=== PATIENT | male | born 1995 | race Caucasian/White ===

== ENCOUNTER 2017-05-22 19:26 | Emergency (ER) | payer BC ==
[2017-05-22] MEDS ORDERED: KETOROLAC 30 MG/1 ML SDV IVP ONE (19:55)
[2017-05-22] MEDS ORDERED: NS 1,000 ML IV ONE ×2 (19:55→22:12)
--- NOTE | 2017-05-22 19:59 | EDPHY ---
H & P Time Seen by Provider: 05/22/17 19:45 HPI/ROS: CHIEF COMPLAINT: Nausea, fatigue HISTORY OF PRESENT ILLNESS: Patient is a 21-year-old male with ankylosing spondylitis who presents to the emergency department with complaints of nausea and fatigue. The patient states he became ill last weekend. He initially had a slight head cold and cough. He describes a mild headache which subsequently resolved. He then became extremely fatigued and tired. He has had a fever and chills. He reports nausea and intermittent nonbloody emesis. No diarrhea. No abdominal pain. The patient still has intermittent nonproductive cough. No shortness of breath. No dysuria. The patient reports mild frequency. REVIEW OF SYSTEMS: My complete review of systems is negative except as mentioned in the HPI. Past Medical/Surgical History: Ankylosing spondylitis, arm fracture Social history: The patient does not smoke Smoking Status: Never smoked Physical Exam: 39.3, 123/80, 125, 16, 95 GENERAL: No acute distress, alert. HEENT: Eyes normal to inspection, normal pharynx, no signs of dehydration. NECK: No thyromegaly, no lymphadenopathy, supple. RESPIRATORY: Clear to auscultation bilaterally, no rales, rhonchi or wheezing. CVS: Regular rate and rhythm, no rubs, murmurs, or gallops. ABDOMEN: Soft, nontender, nondistended, no organomegaly. BACK: Normal to inspection, no CVA tenderness. SKIN: Normal color, no rash, warm, dry. No pallor. EXTREMITIES: No pedal edema, no calf tenderness, no Homans sign or cords, no joint swelling. NEURO/PSYCH: Alert and oriented, normal mood and affect, normal motor sensory exam. No obvious cranial nerve deficit. Constitutional: Initial Vital Signs Temperature (C) 39.3 C H 05/22/17 19:36 Heart Rate 125 H 05/22/17 19:36 Respiratory Rate 16 05/22/17 19:36 Blood Pressure 123/80 H 05/22/17 19:36 O2 Sat (%) 95 05/22/17 19:36 O2 Delivery Mode Room Air Allergies/Adverse Reactions: Sulfa (Sulfonamide Antibiotics) Allergy (Verified 05/22/17 19:36) Home Medications: Medication Instructions Recorded levOFLOXACIN [Levaquin] 750 mg PO DAILY #10 tab 05/22/17 Medical Decision Making - Diagnostics Imaging Results: Imaging Impressions Chest X-Ray 05/22/17 19:54 Impression: 1. Prominence of perihilar interstitial markings and peribronchial cuffing. Findings are nonspecific but can be seen with bronchitis, reactive airway disease, or viral process. 2. Hazy increased markings right suprahilar region that could represent pneumonitis or early pneumonia. ED Course/Re-evaluation: In the emergency department I discussed possible etiologies with the patient. I answered all his questions. An IV was placed. Patient was given 1 L of normal saline. He is given Toradol 30 mg IV for his temperature. Laboratory studies, chest x-ray and urine were obtained. I rechecked the patient. He is feeling better after receiving the fluid. CBC is pending. Chemistry panel and LFTs are normal. Influenza is pending. Urine pending. Chest x-ray: Please refer the dictated report. Prominence of perihilar interstitial markings and peribronchial cuffing. Findings are nonspecific but can be seen with bronchitis, reactive airway disease or viral process. 2. There he has the increased markings in the right for hilar region that could represent pneumonitis or early pneumonia. Based on the patient's presentation with temperature and significant fatigue he will be treated to cover for possible early pneumonia. The patient was given Levaquin 750 mg IV. Differential Diagnosis: My differential includes but is not limited to bacteremia, sepsis, bronchitis, pneumonia, influenza, urinary tract infection, viral illness - Data Points Laboratory Results: Laboratory Results 05/22/17 20:15 05/22/17 05/22/17 05/22/17 20:26 20:15 20:15 WBC RBC Hgb Hct MCV MCH MCHC RDW Plt Count MPV Neut % (Auto) Lymph % (Auto) [place] % (Auto) Eos % (Auto) Baso % (Auto) Nucleat RBC Rel Count Absolute Neuts (auto) Absolute Lymphs (auto) Absolute Monos (auto) Absolute Eos (auto) Absolute Basos (auto) Absolute Nucleated RBC Immature Gran % Immature Gran # PT 14.1 SEC SEC (12.0-15.0) INR 1.07 (0.83-1.16) APTT 30.2 SEC SEC (23.0-38.0) VBG Lactic Acid Sodium 141 mEq/L mEq/L (135-145) Potassium 4.4 mEq/L mEq/L (3.5-5.2) Chloride 102 mEq/L mEq/L (97-110) Carbon Dioxide 23 mEq/l mEq/l (22-31) Anion Gap 16 mEq/L mEq/L (8-16) BUN 21 mg/dL mg/dL (7-23) Creatinine 1.3 mg/dL mg/dL (0.7-1.3) Estimated GFR > 60 Glucose 98 mg/dL mg/dL (70-100) Calcium 9.3 mg/dL mg/dL (8.5-10.4) Total Bilirubin 1.2 mg/dL mg/dL (0.1-1.4) Conjugated Bilirubin 0.4 mg/dL mg/dL (0.0-0.5) Unconjugated Bilirubin 0.8 mg/dL mg/dL (0.0-1.1) AST 51 IU/L IU/L (17-59) ALT 32 IU/L IU/L (21-72) Alkaline Phosphatase 85 IU/L IU/L (38-126) Total Protein 7.9 g/dL g/dL (6.3-8.2) Albumin 4.6 g/dL g/dL (3.5-5.0) Nasal Influenza A PCR Pending Nasal Influenza B PCR Pending 05/22/17 05/22/17 20:15 20:15 WBC Pending RBC Pending Hgb Pending Hct Pending MCV Pending MCH Pending MCHC Pending RDW Pending Plt Count Pending MPV Pending Neut % (Auto) Pending Lymph % (Auto) Pending [place] % (Auto) Pending Eos % (Auto) Pending Baso % (Auto) Pending Nucleat RBC Rel Count Pending Absolute Neuts (auto) Pending Absolute Lymphs (auto) Pending Absolute Monos (auto) Pending Absolute Eos (auto) Pending Absolute Basos (auto) Pending Absolute Nucleated RBC Pending Immature Gran % Pending Immature Gran # Pending PT INR APTT VBG Lactic Acid 1.7 mmol/L mmol/L (0.7-2.1) Sodium Potassium Chloride Carbon Dioxide Anion Gap BUN Creatinine Estimated GFR Glucose Calcium Total Bilirubin Conjugated Bilirubin Unconjugated Bilirubin AST ALT Alkaline Phosphatase Total Protein Albumin Nasal Influenza A PCR Nasal Influenza B PCR Medications Given: Discontinued Medications Sodium Chloride (Ns) 1,000 mls @ 0 mls/hr IV EDNOW ONE; Wide Open PRN Reason: Protocol Stop: 05/22/17 19:56 Last Admin: 05/22/17 20:13 Dose: 1,000 mls Ketorolac Tromethamine (Toradol) 30 mg IVP EDNOW ONE Stop: 05/22/17 19:56 Last Admin: 05/22/17 20:14 Dose: 30 mg Departure - Departure Disposition: Home, Routine, Self-Care Clinical Impression: Fever Qualifiers: Fever type: unspecified Qualified Code(s): R50.9 - Fever, unspecified Pneumonia Qualifiers: Pneumonia type: due to unspecified organism Laterality: right Lung location: upper lobe of lung Qualified Code(s): J18.1 - Lobar pneumonia, unspecified organism Condition: Good Instructions: Pneumonia (ED), Fever in Adults (ED) Additional Instructions: Return to the emergency department with increasing shortness of breath, persistent fever, or any other concerns. Take your entire course of antibiotics. Referrals: Raffy Junior MD [[facility] [place] Primary Care Provider] - 2-3 days, call for appt.
[2017-05-22 20:47] LABS: INR 1.07 (0.83-1.16); PROTIME(PATIENT) 14.1 SEC (12.0-15.0)
[2017-05-22 21:02] LABS: PLATELET COUNT 123 10^3/uL (150-400)
[2017-05-22 23:25] VITALS: BP 110/65; PULSE 84; RESP 18; TEMP 98.1; O2SAT 94
== END 2017-05-22 23:23 | disposition home or self-care (01) ==
DX: J18.1 Lobar pneumonia, unspecified organism (principal); E86.9 Volume depletion, unspecified
CPT/HCPCS: 96365; J1885; J1956

== ENCOUNTER 2017-09-03 09:30 | Inpatient (IN) | payer BC ==
--- NOTE | 2017-09-03 09:32 | EDPHY ---
H & P Time Seen by Provider: 09/03/17 09:31 HPI/ROS: CHIEF COMPLAINT: Vomiting blood HISTORY OF PRESENT ILLNESS: 22-year-old man has a diagnosis of ankylosing spondylitis. He was diagnosed when his brother got diagnosed after having an eye problem. He has been sick over the last week with nausea and vomiting and abdominal cramping. Symptoms severe and yesterday and today associated with vomiting red blood including per office visit notes from Dr. Mary Lou barney 200 mL of blood during his appointment with her this morning. No melena or or red blood per rectum. Worse with oral intake. Associated also with 15 lb weight loss over the last week. REVIEW OF SYSTEMS: Eye: no change in vision ENT: no sore throat Cardiac: no chest pain or syncope, but feels lightheaded Pulmonary: no cough or SOB Abdomen: HPI Musculoskeletal: no back pain Skin: no rash Neuro: Feels dizzy and lightheaded, had a headache on Saturday but now it is gone. Constitutional: Subjective fever last week but none today. Took ibuprofen last and Saturday for the symptoms. Feels generally weak. : no urinary symptoms, no polyuria A comprehensive 10 point review of systems is otherwise negative aside from elements mentioned in the history of present illness. PAST MEDICAL HISTORY: Ankylosing spondylitis, diagnosed with influenza B on 05/12 in our emergency department. History of depression and anxiety Social history: Nonsmoker, no alcohol General Appearance: Alert and conversant, cooperative. Eyes: No scleral icterus. ENT, Mouth: Dry mucous membranes but no pharyngeal bleeding. Respiratory: Normal respiratory effort, breath sounds equal, lungs are clear to auscultation. Cardiovascular: Regular rate and rhythm. Tachycardic. Gastrointestinal: Abdomen is soft and non tender. Neurological: Alert, face symmetric, normal motor and sensory in extremities. Skin: Warm and dry, no rashes. Musculoskeletal: No peripheral edema. Psychiatric: Not agitated. Emergency Department course/MDM: Called by Dr. Manley at 9:15 a.m. Prior to the patient's arrival. I-STAT and EKG, IV hydration and Zofran 4 mg, admission to hospital for further evaluation. Protonix 40 mg IV for vomiting blood, consideration of upper GI bleed. 1003: I-STAT creatinine is 1.8, hematocrit 57. Labs reviewed include acute kidney injury and hemoconcentration from dehydration. Smoking Status: Never smoked Constitutional: Initial Vital Signs Temperature (C) 36.7 C 09/03/17 09:35 Heart Rate 119 H 09/03/17 09:35 Respiratory Rate 18 09/03/17 09:35 Blood Pressure 97/79 L 09/03/17 09:35 O2 Sat (%) 95 09/03/17 09:35 O2 Delivery Mode Room Air Allergies/Adverse Reactions: Penicillins Allergy (Verified 09/03/17 10:35) rash/fever Sulfa (Sulfonamide Antibiotics) Allergy (Verified 09/03/17 10:35) rash/fever Home Medications: Medication Instructions Recorded Ibuprofen [Motrin (*)] 200 mg PO DAILY PRN 09/03/17 Medical Decision Making - Diagnostics EKG Interpretation: 12-lead EKG interpreted by me; official reading is in trace master. My interpretation is sinus rhythm rate 86 no ischemic changes. Differential Diagnosis: Differential diagnosis considered for nausea and vomiting including but not limited to gastroenteritis, gastritis, appendicitis, and medication side effect. Consult/Admit Bed Type: [place] [id number] - Data Points Laboratory Results: Laboratory Results 09/03/17 09:46 09/03/17 09:46 09/03/17 09/03/17 09/03/17 09:51 09:46 09:46 WBC 9.65 10^3/uL H 10^3/uL (3.80-9.50) RBC 6.13 10^6/uL 10^6/uL (4.40-6.38) Hgb 18.9 g/dL H g/dL (13.7-17.5) POC Hgb 19.4 gm/dL H gm/dL (13.7-17.5) Hct 52.5 % H % (40.0-51.0) POC Hct 57 % H % (40-51) MCV 85.6 fL fL (81.5-99.8) MCH 30.8 pg pg (27.9-34.1) MCHC 36.0 g/dL g/dL (32.4-36.7) RDW 12.3 % % (11.5-15.2) Plt Count 269 10^3/uL 10^3/uL (150-400) MPV 10.3 fL fL (8.7-11.7) Neut % (Auto) 69.6 % % (39.3-74.2) Lymph % (Auto) 21.6 % % (15.0-45.0) [place] % (Auto) 7.7 % % (4.5-13.0) Eos % (Auto) 0.4 % L % (0.6-7.6) Baso % (Auto) 0.3 % % (0.3-1.7) Nucleat RBC Rel Count 0.0 % % (0.0-0.2) Absolute Neuts (auto) 6.72 10^3/uL H 10^3/uL (1.70-6.50) Absolute Lymphs (auto) 2.08 10^3/uL 10^3/uL (1.00-3.00) Absolute Monos (auto) 0.74 10^3/uL 10^3/uL (0.30-0.80) Absolute Eos (auto) 0.04 10^3/uL 10^3/uL (0.03-0.40) Absolute Basos (auto) 0.03 10^3/uL 10^3/uL (0.02-0.10) Absolute Nucleated RBC 0.00 10^3/uL 10^3/uL (0-0.01) Immature Gran % 0.4 % % (0.0-1.1) Immature Gran # 0.04 10^3/uL 10^3/uL (0.00-0.10) POC Sodium 139 mEq/L mEq/L (135-145) Sodium 142 mEq/L mEq/L (135-145) POC Potassium 4.0 mEq/L mEq/L (3.3-5.0) Potassium 4.6 mEq/L mEq/L (3.3-5.0) POC Chloride 97 mEq/L mEq/L (97-110) Chloride 96 mEq/L L mEq/L (97-110) Carbon Dioxide 28 mEq/l mEq/l (22-31) Anion Gap 18 mEq/L H mEq/L (8-16) POC BUN 62 mg/dL H mg/dL (7-23) BUN 65 mg/dL H mg/dL (7-23) Creatinine 1.6 mg/dL H mg/dL (0.7-1.3) POC Creatinine 1.8 mg/dL H mg/dL (0.7-1.3) Estimated GFR 55 Glucose 164 mg/dL H mg/dL (70-100) POC Glucose 171 mg/dL H mg/dL (70-100) Calcium 9.7 mg/dL mg/dL (8.5-10.4) Total Bilirubin 2.0 mg/dL H mg/dL (0.1-1.4) Conjugated Bilirubin 0.5 mg/dL mg/dL (0.0-0.5) Unconjugated Bilirubin 1.5 mg/dL H mg/dL (0.0-1.1) AST 39 IU/L IU/L (17-59) ALT 24 IU/L IU/L (21-72) Alkaline Phosphatase 89 IU/L IU/L (38-126) Total Protein 8.6 g/dL H g/dL (6.3-8.2) Albumin 4.8 g/dL g/dL (3.5-5.0) Medications Given: Discontinued Medications Sodium Chloride (Ns) 1,000 mls @ 3,000 mls/hr IV ONCE ONE Stop: 09/03/17 10:09 Last Admin: 09/03/17 09:53 Dose: 1,000 mls Sodium Chloride (Ns) 1,000 mls @ 0 mls/hr IV EDNOW ONE; Wide Open PRN Reason: Protocol Stop: 09/03/17 10:04 Last Admin: 09/03/17 10:36 Dose: 1,000 mls Sodium Chloride (Ns) 1,000 mls @ 0 mls/hr IV EDNOW ONE; Wide Open PRN Reason: Protocol Stop: 09/03/17 10:04 Last Admin: 09/03/17 11:11 Dose: Not Given Ondansetron HCl (Zofran) 4 mg IVP EDNOW ONE Stop: 09/03/17 09:51 Last Admin: 09/03/17 09:51 Dose: 4 mg Pantoprazole Sodium (Protonix) 40 mg IVP EDNOW ONE Stop: 09/03/17 09:47 Last Admin: 09/03/17 09:52 Dose: 40 mg Point of Care Test Results: Chemistry 09/03/17 09:51 POC Sodium 139 mEq/L mEq/L (135-145) POC Potassium 4.0 mEq/L mEq/L (3.3-5.0) POC Chloride 97 mEq/L mEq/L (97-110) POC BUN 62 mg/dL H mg/dL (7-23) POC Creatinine 1.8 mg/dL H mg/dL (0.7-1.3) POC Glucose 171 mg/dL H mg/dL (70-100) ISTAT H&H 09/03/17 09:51 POC Hgb 19.4 gm/dL H gm/dL (13.7-17.5) POC Hct 57 % H % (40-51) Departure - [facility] Clinical Impression: Dehydration, Upper GI bleed Nausea & vomiting Qualifiers: Vomiting type: unspecified Vomiting Intractability: intractable Qualified Code( s): R11.2 - Nausea with vomiting, unspecified Condition: Good
[2017-09-03] MEDS ORDERED: PANTOPRAZOLE SODIUM 40 MG VIAL IVP ONE (09:46)
[2017-09-03] MEDS ORDERED: ONDANSETRON 4 MG/2 ML VIAL ONE (09:46)
[2017-09-03] MEDS ORDERED: NS 1,000 ML IV ONE ×3 (09:50→10:03)
[2017-09-03] MEDS ORDERED: ONDANSETRON 4 MG/2 ML VIAL IVP ONE (09:50)
--- NOTE | 2017-09-03 10:00 | CPEKG ---
Heart Rate: 86 RR Interval: 698 P-R Interval: 160 QRSD Interval: 84 QT Interval: 380 QTC Interval: 455 P Tiline: 72 QRS Tiline: 87 T Wave Tiline: 50 EKG Severity - NORMAL ECG - EKG Impression: SINUS RHYTHM Electronically Signed By: Ashish Rogers 03-Sep-2017 10:02:36
[2017-09-03 10:01] LABS: PLATELET COUNT 269 10^3/uL (150-400)
--- NOTE | 2017-09-03 10:57 | PDGENHP ---
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 He was doing well until approximately 6 days ago when he started to have onset of nausea vomiting with occasional crampy abdominal discomfort but no change in bowel function. He did have some modest fevers for the 1st couple of days but these have since resolved. There has been no rash, no pain in joints or swelling in joints, no oral ulcers or ocular symptoms. He has no respiratory symptoms. There was a little bit of blood in emesis 4 days ago but then yesterday and today more notable amount of blood. He has been able to keep almost no food or fluids in over the last few days. He is starting to feel weak and tired. He presents to the hospital with these complaints. There is no prior history of gastrointestinal illness, but he did admit to using some ibuprofen early on during this illness. Normally he does not use any nonsteroidal anti-inflammatories. He does not drink alcohol or use street drugs. He has no prior history of abnormal bleeding tendencies. There is no family history of digestive illnesses or bleeding illnesses that he is aware of. He has not traveled outside the country, does not have any acquaintances who are ill, has not had any outdoor shi to drink, has not eaten any suspicious foods. 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 No alcohol, no street drugs MEDICATIONS: The patients list has been reconciled by our clinical pharmacist in the EMR. I have reviewed the list and ordered appropriate medicines. PHYSICAL EXAMINATION: Vital Signs: Initially he was quite tachycardic and somewhat hypotensive in the ER but this responded very quickly to IV fluids; no fevers Hall Worker: Sinus tachycardia initially Examination: General: alert, oriented, good mentation, relaxed though looks very tired Skin: warm, dry, good color, no rash HEENT: normal Neck: no mass or jvd Resps: relaxed Lungs: clear breath sounds Heart: regular, no murmur Abdomen: soft, nondistended, nontender, +BS, no mass Upper Extremities: normal Lower Extremities: no edema, warm No Bleeding or bruising Neurologic: normal speech/language, normal automatic screwmaker, no focal weakness IV site: looks normal LABORATORY DATA: Initial hemoglobin is at 19, and noticeably his hemoglobin was at 19 three months ago when he had a likely bronchitis visit to the ER. Platelets are normal, white blood cell count slightly high. On metabolic panel notably he has a new increase in his creatinine to 1.8 when it was normal 3 months ago. After hydration I have recheck laboratory data and his hemoglobin is now down to 14 and creatinine is improved to 1.2. RADIOLOGY STUDIES: None so far 12 LEAD EKG, my reading of the ER tracing: Sinus rhythm with no acute abnormalities ASSESSMENT: * acute upper GI bleed, complicated by hypotension tachycardia * Differential diagnosis for cause includes nonsteroidal induced ulceration, Val-Tovar tear which seems more likely * acute hypotension with tachycardia, likely represents response to dehydration as much as anything but will need to watch closely as he is having GI bleeding * gastroenteritis versus other cause of ongoing nausea vomiting x1 week * acute renal failure due to above * ankylosing spondylitis PLANS: * obs admission hospital * Aggressive hydration with IV fluids * Follow hemoglobin and renal function very closely * Proton pump inhibitor started in the ER and will continue that twice daily * I have asked Dr. Krunal Lynn to assess the patient and follow along; upper endoscopy has been recommends the patient but after reviewing with his mother the patient and his mother have decided to request that we not do endoscopy unless he has ongoing bleeding, which we will respect the as long as he is clinically stable * GI viral PCR studies to try and identify an etiology I have reviewed the patient's case in detail with Dr. Krunal Lynn I have reviewed the patient's past medical records as part of this assessment, including previous emergency room visit records and clinic records previous ER visit records with laboratory data and physician notes
--- NOTE | 2017-09-03 13:35 | GCON ---
[f rep st] CONSULTATION DATE OF CONSULTATION: 09/03/2017 REFERRING PHYSICIAN: Dr. Polanco Dear Dr. Polanco: Thank you very kindly for asking me to evaluate the patient in consultation today for a chief complai nt of hematemesis. 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 He describes a fever that was low-grade and a headache, foll owed by several episodes of watery diarrhea and abdominal pain. Today, he woke up and was nauseous a nd could not eat or drink and developed vomiting. He had multiple episodes of vomiting until all he was doing was dry heaving and then ultimately had an episode of bright red hematemesis. He threw up again in the emergency room, which was more maroon color and about a coffee cup full. He denies any further vomiting. He has had no melena. His hematocrit in the ER with likely, we believe, hemoconce ntration, however, was 52.5. His BUN is also elevated at 65, with a creatinine of 1.6, which may be a combination of dehydration and bleeding. He has had no previous gastrointestinal bleeding and has had no specific gastrointestinal illness in his history. He does have ankylosing spondylitis, which is manifested mostly by low back pain, and is not on any routine medications for this. He did take 1 dose of ibuprofen on and again on Saturday for the headache, but none since. Currently, he h as had no further fever, and his headache is improved. He feels much better after IV hydration in emergency room. I am asked to assist with further evaluation and management. PAST MEDICAL HISTORY: Ankylosing spondylitis. He had a flu-like illness in May that was treated a [facility]. PAST SURGICAL HISTORY: Repair of a right arm fracture. MEDICATIONS: On admission, ibuprofen. ALLERGIES: Penicillin and sulfa. FAMILY HISTORY: Negative for esophageal illness, peptic ulcer disease, pancreatic illness, or inflam matory bowel disease. REVIEW OF SYSTEMS: CONSTITUTIONAL: Has been having fever, headache, general malaise, poor appetite and nausea. HEENT: Frontal headache without worsening. This seems to be improved after hydration. He does report a sore throat. No epistaxis. PULMONARY: No cough or shortness of breath. CARDIOVA SCULAR: He does have some mild lower chest discomfort since the vomiting but no exertional chest pasquale n. No palpitations. No syncope. No exertional dyspnea. NEURO: No paresthesias or focal motor wea kness. RHEUMATOLOGIC: He describes chronic low back pain that has not been worse. No other joint p ain. HEMATOLOGIC: No epistaxis or bruising. LYMPHATIC: No adenopathy. GENITOURINARY: No hematur ia. No flank pain. No dysuria. ENDOCRINE: No heat or cold intolerance. No polyuria. He is thirs ty. PHYSICAL EXAM: VITAL SIGNS: Blood pressure 115/72, with a heart rate of 86 and regular. Respiratio ns are 16. Oxygenation is 97% on room air. T-max is 36.7. GENERAL: Healthy and calm-appearing you ng male in no acute distress. There is an emesis basin next to his bed with maroon-colored vomit. H EENT: Normocephalic, atraumatic. Sclerae anicteric. NECK: Supple. No adenopathy. No thyromegaly . No jugular venous distention or carotid bruit. No facial tenderness over the sinuses. PULMONARY: Clear to auscultation bilaterally. CARDIOVASCULAR: Regular rate and rhythm, without murmur, rub, or gallop. GI: Abdomen is soft, nontender, nondistended. Normal bowel sounds. No organomegaly. N o ascites or abdominal bruit. EXTREMITIES: No palmar erythema. No clubbing. No joint deformity. D ERMATOLOGIC: No rash or jaundice. No telangiectasias. No bruising. NEUROLOGIC: Alert to person, place, and time. Cranial nerves 2-12 are normal. Motor is nonfocal. LABORATORY DATA: Database includes a CBC showing a white count of 9.6, hematocrit 52.5, hemoglobin 1 8.9. Platelets are 269. Sodium 142, potassium 4.6, chloride 96, bicarbonate 28, BUN 65, creatinine 1.6, glucose 164. Total bilirubin is 2.0, with a direct of 0.5 and an unconjugated of 1.5, AST 39, A LT 24, total protein 8.6, albumin 4.8, alkaline phosphatase 89. IMPRESSION: 1. Hematemesis. 2. Intractable nausea, vomiting. 3. Epigastric pain. 4. Fever. 5. Diarrhea. RECOMMENDATIONS: 1. Stool PCR for pathogens. 2. IV hydration. 3. IV Protonix 40 mg b.i.d. 4. EGD to evaluate his hematemesis, which sounds very clinically like a Val-Tovar tear. 5. I do not know the underlying cause of his fever, headache, abdominal discomfort and diarrhea, but it sounds infectious. Given his recent flu illness in May, which seems similar, I do not know if this could be something recurrent. Will follow recommendations of his hospitalist's workup for the f ever. 6. His elevated total bilirubin is mostly indirect and can either represent Gilbert's disease or pos sibly some element of hemolysis, although he is not anemic. This will need to be followed. In some patients, hyperbilirubinemia can be a muller to vasculitides or other problems that can present with abd ominal pain and vomiting. 7. Further recommendations to follow his upper endoscopy. He is n.p.o. at the current time. /[id number]/MODL
[2017-09-03] MEDS: NS 1,000 ML IV SCH (15:02)
[2017-09-03] MEDS ORDERED: ACETAMINOPHEN 325 MG TAB PO PRN (15:41)
[2017-09-03] MEDS ORDERED: ZOLPIDEM TARTRATE 5 MG TAB PO PRN (15:41)
[2017-09-03] MEDS ORDERED: ONDANSETRON 4 MG/2 ML VIAL IVP PRN (15:41)
[2017-09-03] MEDS ORDERED: PROMETHAZINE HCL 25 MG/ML INJ IVP PRN (15:41)
[2017-09-03] MEDS: ONDANSETRON DISINTEGRATING 4 MG TAB PO PRN ×2 (16:19→20:22)
[2017-09-03] MEDS: PANTOPRAZOLE SODIUM 40 MG VIAL IVP SCH (20:22)
[2017-09-04] MEDS: NS 1,000 ML IV SCH ×2 (03:56→10:05)
[2017-09-04 05:19] LABS: PLATELET COUNT 156 10^3/uL (150-400)
--- NOTE | 2017-09-04 09:15 | HOSPPROG ---
Hospitalist Progress Note Assessment/Plan: DIAGNOSES: * acute upper GI bleed, uncertain of Val-Tovar tear or ulceration or other lesion * post hemorrhagic anemia * acute renal failure due to above * probable gastroenteritis as the cause of his underlying illness * history of ankylosing spondylitis, minimally symptomatic at present At this point it appears things have probably stabilized to a degree in terms of bleeding, but with low continued drop in hemoglobin uncertain if we are seeing late effects of hydration verses ongoing bleeding. Will need to follow vital signs and recheck hemoglobin at least 1 more time today. If he appears to still be bleeding would recommend reconsidering upper endoscopy which she had declined yesterday. Renal function notably improved PLANS: * Will slow down IV hydration at this point * Recheck hemoglobin later today and follow blood pressures * Continue to aggressively manage nausea to avoid any vomiting * I do not feel that will need to recheck renal function any further * Will review with Dr. Lynn when he is here SUBJECTIVE: Feeling better overall but still needing nausea medications intermittently Has not noticed any bleeding, occasional intermittent abdominal cramps No bowel movement since arrival to hospital OBJECTIVE Vitals reviewed: 1 low blood pressure early this morning otherwise vitals stable with no fever Topographical Drafter, my review: Exam: alert oriented skin warm dry color ok resps not labored lungs clear BSs heart regular abd soft nondistended nontender, bowel sounds present limbs warm, no edema iv site ok Laboratory data: Hemoglobin now down to 11, hemoglobin lower with each measure so far Creatinine now back down to very near his baseline Objective: Vital Signs Temp Pulse Resp BP Pulse Ox 36.8 C 87 16 110/62 94 09/04/17 07:17 09/04/17 07:17 09/04/17 07:17 09/04/17 07:17 09/04/17 07:17 Laboratory Results 09/04/17 04:53 09/04/17 04:53 09/03/17 09/04/17 09/05/17 06:59 06:59 06:59 Intake Total 2433 Balance 2433 ICD10 Worksheet Patient Problems: Problems Problem Status Onset Dehydration Acute Nausea & vomiting Acute Upper GI bleed Acute
[2017-09-04] MEDS: PANTOPRAZOLE SODIUM 40 MG VIAL IVP SCH ×2 (10:04→20:51)
--- NOTE | 2017-09-04 12:04 | ASMTCMCOM ---
CM Note CM Note Notes: Spoke w/RN, anticipate will dc home independent when medically stable. Pt is a student at , CM available for any changes. DC Plan: Independent Date Signed: 09/04/2017 12:03 PM Electronically Signed By:Xiomara Landin RN
[2017-09-04 15:22] LABS: PLATELET COUNT 145 10^3/uL (150-400)
--- NOTE | 2017-09-04 15:25 | SOAPPROG ---
SOAP Progress Note Assessment/Plan: Assessment: 1. Hematemesis 2. Nausea with emesis 3. Cough Plan: 1. Stop IVF 2. Consider CXR if cough worsens 3. ADAT 4. I will follow up on repeat Hct done this afternoon 5. If stable Hct then stop serial Hct and check CBC in AM 6. If further hematemesis, melena or significant drop in Hct then will readdress need for EGD. 09/04/17 15:21 Subjective: CC: Cough Feels puffy No further N/V. He is concerned about recurrence of hematemesis. Hungry and no pain. Objective: Vital Signs Temp Pulse Resp BP Pulse Ox 36.9 C 75 16 107/59 L 94 09/04/17 11:38 09/04/17 11:38 09/04/17 11:38 09/04/17 11:38 09/04/17 11:38 Laboratory Results 09/04/17 04:53 09/03/17 09/04/17 09/05/17 05:59 05:59 05:59 Intake Total 2433 Balance 2433 Physical Exam - Physical Exam General Appearance: no apparent distress Respiratory: rales Cardiac/Chest: tachycardia Abdomen: normal bowel sounds, non-tender, soft, No distended, No guarding, No rebound, No ascites Skin: warm/dry Neuro/Psych: alert, oriented x 3 ICD10 Worksheet Patient Problems: Problems Problem Status Onset Dehydration Acute Nausea & vomiting Acute Upper GI bleed Acute
[2017-09-04] MEDS: ONDANSETRON DISINTEGRATING 4 MG TAB PO PRN (21:20)
[2017-09-05] MEDS: PANTOPRAZOLE SODIUM 40 MG VIAL IVP SCH (09:00)
--- NOTE | 2017-09-05 11:03 | PDMN ---
Medical Necessity Medical necessity: Change to IP, as of 09/04/17, per MD & MCG M-180; los >2 mn for ongoing management of acute upper GI bleed of unknown origin w/nausea, hematemesis, cough & inability to maintain oral hydration/solid foods; admit for further monitoring, IV Protonix, GI consult w/possible intervention; per progress note & order; 09/04/17
[2017-09-05 11:37] VITALS: BP 106/64
--- NOTE | 2017-09-05 11:52 | SOAPPROG ---
SOAP Progress Note Assessment/Plan: Assessment: 1. Nausea and vomiting 2. Cough Plan: 1. ADAT 2. OK for discharge 3. EGD for recurrent symptoms 4. Will sign off. Please call with questions. 09/05/17 11:50 09/05/17 11:52 Subjective: CC: no further N/V Ate breakfast No hematemesis or melena. No abdominal pain Cough resolved. Objective: Vital Signs Temp Pulse Resp BP Pulse Ox 37.3 C 81 20 106/64 97 09/05/17 11:33 09/05/17 11:33 09/05/17 11:33 09/05/17 11:33 09/05/17 11:33 09/04/17 09/05/17 09/06/17 05:59 05:59 05:59 Intake Total 780 Balance 780 Physical Exam - Physical Exam General Appearance: WD/WN, no apparent distress EENT: normal ENT inspection, pharynx normal Neck: supple Respiratory: normal breath sounds Cardiac/Chest: regular rate, rhythm Abdomen: non-tender, soft, No organomegaly, No distended, No guarding, No rebound, No ascites ICD10 Worksheet Patient Problems: Problems Problem Status Onset Dehydration Acute Nausea & vomiting Acute Upper GI bleed Acute
--- NOTE | 2017-09-05 13:33 | PDDCSUM ---
Discharge Summary Discharge Summary: DISCHARGE DIAGNOSES: -acute upper GI bleed with hypotension and tachycardia -acute renal failure due to above, hemodynamic mechanism, resolved -uncertain etiology of GI bleed but suspected Val-Tovar tear versus less likely ulcer -post hemorrhagic anemia -likely gastroenteritis, resolved CONSULTANTS: Dr. 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 He vomited several times for a couple days then had a small amount of bleeding associated. Over the next couple of days his vomiting had persisted though the fever resolved. There was never much abdominal pain in the was never any change in bowel function. Finally on the day before admission and the day of admission he had ongoing vomiting with bright red blood. There was no rash or symptoms affecting the joints eyes or mucosa. He presented to the emergency room this story. He had no travel, no sick contacts, no suspicious foods consumed He did take some ibuprofen during the course of his illness as described above. Upon presentation was hypotensive and tachycardic though this responded very quickly to IV fluids with rapid resolution of those abnormalities. Upon presentation he did have some acute renal failure with a creatinine of 1.6, and his 1st hemoglobin was 18 which is the same hemoglobin that was measured here 3 months prior when he presented with bronchitis. We are able to control his nausea and he did not have any further vomiting here in the hospital. He had no further bleeding during stay here in the hospital. His vital signs remained stable here. With ongoing hydration his kidney function resolved entirely. Notably his hemoglobin did drop from 18-11. He got a fair bit of IV fluids and some of this drop was probably delusional but he did seem to have lost quite a bit of blood at home. Eventually we had him start drinking and then eating and he has been able to tolerate this well without antiemetics today. At this point he seems very stable. It was recommended to him that we consider looking his stomach with endoscopy to determine the source of bleeding. It was 5 felt that this was most likely a Val-Tovar tear but unable to rule out bleeding ulcer. His mother was consulted by telephone by the patient's choice and after discussion with the patient and mother it was the patient and mother's choice to avoid endoscopy unless he had further bleeding. They did understand that there is a possibility of further bleeding even after discharge from the hospital and that this was hard to predict without knowing what the bleeding lesion was. At this time the patient will be discharged from the hospital. He will be given Protonix to take 40 mg twice daily for 8 weeks. He also is given a prescription for Zofran and he is instructed to treat nausea aggressively to try and avoid any vomiting. He is instructed to return to medical attention promptly if he has any further bleeding, becomes lightheaded weak or short of breath, or has any other concerning symptoms. He is given a letter to take to the [employer] where he is missed classes for several days. PENDING TEST RESULTS: None MEDICATION CHANGES: Addition of Protonix 40 mg twice daily for 8 weeks Addition of p.r.n. Zofran for nausea FOLLOW-UP PLAN: With Dr. Lynn in 6-8 weeks Greater than 35 minutes bedside and care coordination time today
== END 2017-09-05 14:50 | disposition home or self-care (01) | DRG 378 ==
LOC: INTOOBSV 10:12 → F3E 11:48 → OBSVTOIN 09-04 17:54
PROVIDERS: ADMIT Internal Medicine; ATTEND Internal Medicine
DX: K92.0 Hematemesis (principal); K52.9 Noninfective gastroenteritis and colitis, unspecified; K22.6 Gastro-esophageal laceration-hemorrhage syndrome; N17.9 Acute kidney failure, unspecified; D50.0 Iron deficiency anemia secondary to blood loss (chronic); M45.9 Ankylosing spondylitis of unspecified sites in spine
CPT/HCPCS: 82435-PO; 82565-PO; 82947-PO; 84132-PO; 84295-PO; 84520-PO; 85014-PO; 96374; G0378; J2405